=== PATIENT | female | born 1950 | race Caucasian/White ===

== ENCOUNTER 2021-06-06 12:59 | Outpatient (CLI) | payer MEDICARE | END 2021-06-06 13:00 | disposition home or self-care (01) | LOC: CSHRAD 12:59 | PROVIDERS: ATTEND Chiropractor | DX: R06.02 Shortness of breath (principal); I10 Essential (primary) hypertension | CPT/HCPCS: 71046 ==

== ENCOUNTER 2021-10-17 08:03 | Outpatient (CLI) | payer MEDICARE | END 2021-10-17 08:04 | disposition home or self-care (01) | LOC: CSHCT 08:03 | PROVIDERS: ATTEND Internal Medicine Critical Care Medicine | DX: R06.00 Dyspnea, unspecified (principal) | CPT/HCPCS: 71275; 82565; 94060; 94726; 94729; 94760 ==

== ENCOUNTER 2022-03-26 14:06 | Outpatient (CLI) | payer MEDICARE | END 2022-03-26 14:07 | disposition home or self-care (01) | LOC: CSHMRI 14:06 | PROVIDERS: ATTEND Specialist | DX: S76.312A Strain of muscle, fascia and tendon of the posterior muscle group at thigh level, left thigh, initial encounter (principal); M70.62 Trochanteric bursitis, left hip; S73.192A Other sprain of left hip, initial encounter ==